=== PATIENT | male | born 1930 | race Caucasian/White ===

== ENCOUNTER 2018-10-16 05:55 | Inpatient (IN) | payer MEDICARE ==
[~2018-10-16] VITALS: Ht 167.6 cm; Wt 79.1 kg
[~2018-10-16 05:55] MED LIST: APIX5TAB PO; BISA-29 PO; CALCIUM CITRATE PO; CAPSAICIN; CHOL1CRY3 PO; CYAN200014 PO; DILT60TA30 PO; DOCUSATE SODIUM PO; DOXA4TAB3 PO; FINA5TAB4 PO; FLUT60LO NAS; FURO40TA6 PO; HYDR-3237 PO; LACT10SO28 PO; LEVO500T47 PO; LOSA25TA6 PO; MAGN420T PO; METO25TA4 PO; METOPROLOL PO; OMEP40CA6 PO; POLY17PO5 PO; POTA20PA25 PO; POTA20TA14 PO; POTA25TA4 PO; ROSU10TA PO; TRAM50TA2 PO; VITA1CAP PO
[2018-10-16] MEDS ORDERED: DILTIAZEM 5 MG/ML, 5ML ONE (06:28)
[2018-10-16] MEDS ORDERED: SODIUM CHLORIDE FLUSH 10ML SYR IVF ONE (06:30)
[2018-10-16] MEDS ORDERED: DILTIAZEM 5 MG/ML, 5ML IV ONE (06:30)
[2018-10-16 06:32] LABS: BASOPHILS # (AUTO) 0.01 x10^3/uL (0-0.1); BASOPHILS % (AUTO) 0 % (0-1); EOSINOPHILS # (AUTO) 0.18 x10^3/uL (0-0.4); EOSINOPHILS % (AUTO) 3 % (1-7); LYMPHOCYTES # (AUTO) 0.57 x10^3/uL (1-3.4); LYMPHOCYTES % (AUTO) 9 % (22-44); MD NO; MEAN CORPUSCULAR HEMOGLOBIN 28.8 pg (27.5-34.5); MEAN CORPUSCULAR HGB CONC 33.2 g/dL (33.2-36.2); MEAN CORPUSCULAR VOLUME 86.8 fL (81-97); MEAN PLATELET VOLUME 7.8 fL (7.4-10.4); MONOCYTES # (AUTO) 0.85 x10^3/uL (0.2-0.8); MONOCYTES % (AUTO) 13 % (2-9); NEUTROPHILS # (AUTO) 4.91 x10^3/uL (1.8-6.8); NEUTROPHILS % (AUTO) 75 % (42-75); PLATELET COUNT 233 x10^3/uL (130-400); RED BLOOD COUNT 3.22 x10^6/uL (4.38-5.82); RED CELL DISTRIBUTION WIDTH 16.8 % (9.4-14.8)
[2018-10-16 06:44] LABS: ALANINE AMINOTRANSFERASE 33 U/L (12-78); ANION GAP 10 mmol/L (5-15); CALCIUM 8.4 mg/dL (8.5-10.1); CHLORIDE 105 mmol/L (98-107)
[2018-10-16 06:49] LABS: ALKALINE PHOSPHATASE 49 U/L (45-117); BILIRUBIN,TOTAL 0.7 mg/dL (0.2-1.0); CREATININE 0.98 mg/dL (0.7-1.3); TROPONIN I 0.026 ng/mL (0.000-0.045)
[2018-10-16] MEDS ORDERED: FUROSEMIDE 40 MG/4 ML IV ONE (07:30)
[2018-10-16] MEDS ORDERED: BUDE10.2 IH (07:36)
[2018-10-16] MEDS ORDERED: ALBU18HF IH (07:36)
[2018-10-16] MEDS ORDERED: FUROSEMIDE 40 MG/4 ML ONE (07:55)
[2018-10-16] MEDS ORDERED: MORPHINE SULFATE 4 MG/ML, 1ML ONE (07:55)
[2018-10-16] MEDS ORDERED: SODIUM CHLORIDE FLUSH 10ML SYR IVF PRN (08:00)
[2018-10-16] MEDS ORDERED: MORPHINE SULFATE 4 MG/ML, 1ML IVPush PRN (08:00)
[2018-10-16] MEDS ORDERED: LOSARTAN 25MG TABLET PO SCH (09:00)
[2018-10-16] MEDS ORDERED: LIDODERM 5% PATCH TD PRN (09:00)
[2018-10-16] MEDS ORDERED: FLUTICASONE NASAL SPRAY 16GM NAS PRN (09:00)
[2018-10-16] MEDS ORDERED: BISACODYL 10 MG SUPP PR PRN (09:00)
[2018-10-16] MEDS ORDERED: LABETALOL 5MG/ML, 20ML IVPush PRN (09:00)
[2018-10-16] MEDS ORDERED: ONDANSETRON 2MG/ML, 2ML IVPush PRN (09:00)
[2018-10-16] MEDS ORDERED: TEMPLATE NON-FORMULARY MED. (Albuterol Sulfate (Ventolin Hfa) 2 PUFFS) IH PRN (09:00)
[2018-10-16] MEDS ORDERED: DILTIAZEM 5 MG/ML, 5ML IVPush PRN (09:00)
[2018-10-16] MEDS ORDERED: ONDANSETRON ODT 4 MG PO PRN (09:00)
[2018-10-16] MEDS: POLYETHYLENE GLYCOL 17 GM PACKET PO SCH (09:00)
[2018-10-16] MEDS: TEMPLATE NON-FORMULARY MED. (Budesonide/Formoterol Fumarate (Symbicort 160-4.5 Mcg Inhaler IH SCH ×2 (09:00→21:49)
[2018-10-16] MEDS ORDERED: hydrALAzine 20 MG/ML, 1ML IVPush PRN (09:00)
[2018-10-16] MEDS ORDERED: DEXTROSE 4 GM TAB.CHEW PO PRN (09:30)
[2018-10-16] MEDS ORDERED: DEXTROSE 50%, 50ML SYRINGE IVPush PRN (09:30)
[2018-10-16] MEDS ORDERED: GLUCAGON 1 MG IM PRN (09:30)
[2018-10-16 09:46] LABS: THYROID STIMULATING HORMONE 1.99 mIU/L (0.358-3.740)
[2018-10-16 10:10] VITALS: BP 131/71
[2018-10-16] MEDS: APIXABAN 5 MG TABLET PO SCH ×2 (10:23→21:33)
[2018-10-16] MEDS: METOPROLOL TARTRATE 25 MG TABLET PO SCH ×2 (10:23→21:33)
[2018-10-16] MEDS: DILTIAZEM 90 MG CAP.ER.12H PO SCH ×2 (10:23→21:32)
[2018-10-16] MEDS: FINASTERIDE 5 MG TABLET PO SCH (10:23)
[2018-10-16] MEDS: POTASSIUM CHLORIDE 20 MEQ TAB.ER.PRT PO SCH (10:23)
[2018-10-16] MEDS: DOCUSATE 100 MG CAPSULE PO SCH ×2 (10:23→21:33)
[2018-10-16] MEDS ORDERED: MAGNESIUM SULFATE PMX 2GM/50ML 50 ML IV ONE (10:30)
[2018-10-16] MEDS ORDERED: ALBUTEROL SULFATE 2.5 MG/3 ML NPPB PRN (10:30)
[2018-10-16 10:32] LABS: MICROSCOPIC AUTO
[2018-10-16 10:36] LABS: CULTURE INDICATED? YES
[2018-10-16] MEDS: INSULIN LISPRO 100 UNITS/ML, PEN SQ-INSULIN SCH ×3 (11:00→21:36)
[2018-10-16] MEDS: ACETAMINOPHEN 325 MG TABLET PO PRN (12:25)
[2018-10-16 14:00] VITALS: BP 131/71
[2018-10-16] MEDS ORDERED: FUROSEMIDE 40 MG/4 ML IV SCH (17:00)
[2018-10-16] MEDS ORDERED: BUDESONIDE 0.5 MG/2 ML INHA INH SCH (21:00)
[2018-10-16] MEDS ORDERED: TEMPLATE NON-FORMULARY MED. (Rosuvastatin Calcium** (Crestor**) 10 MG) PO SCH (21:00)
[2018-10-16 21:30] VITALS: BP 111/54
[2018-10-16] MEDS: SODIUM CHLORIDE FLUSH 10ML SYR IVF SCH (21:31)
[2018-10-16] MEDS: ATORVASTATIN 20 MG TABLET PO SCH (23:28)
[2018-10-17 02:15] VITALS: BP 105/59
[2018-10-17 05:21] LABS: BASOPHILS # (AUTO) 0.02 x10^3/uL (0-0.1); BASOPHILS % (AUTO) 0 % (0-1); EOSINOPHILS # (AUTO) 0.23 x10^3/uL (0-0.4); EOSINOPHILS % (AUTO) 4 % (1-7); LYMPHOCYTES # (AUTO) 0.64 x10^3/uL (1-3.4); LYMPHOCYTES % (AUTO) 12 % (22-44); MD NO; MEAN CORPUSCULAR HEMOGLOBIN 28.7 pg (27.5-34.5); MEAN CORPUSCULAR HGB CONC 33.5 g/dL (33.2-36.2); MEAN CORPUSCULAR VOLUME 85.9 fL (81-97); MEAN PLATELET VOLUME 8.3 fL (7.4-10.4); MONOCYTES # (AUTO) 0.72 x10^3/uL (0.2-0.8); MONOCYTES % (AUTO) 14 % (2-9); NEUTROPHILS % (AUTO) 70 % (42-75); PLATELET COUNT 212 x10^3/uL (130-400); RED BLOOD COUNT 2.95 x10^6/uL (4.38-5.82); RED CELL DISTRIBUTION WIDTH 16.8 % (9.4-14.8)
[2018-10-17 05:29] LABS: ALANINE AMINOTRANSFERASE 28 U/L (12-78); ALBUMIN 2.5 g/dL (3.4-5.0); ANION GAP 7 mmol/L (5-15); CALCIUM 7.8 mg/dL (8.5-10.1); CHLORIDE 106 mmol/L (98-107); CREATININE 0.94 mg/dL (0.7-1.3)
[2018-10-17 05:30] LABS: ALKALINE PHOSPHATASE 43 U/L (45-117); BILIRUBIN,TOTAL 0.5 mg/dL (0.2-1.0); TOTAL PROTEIN 6.1 g/dL (6.4-8.2)
[2018-10-17] MEDS: OMEPRAZOLE 20 MG CAPSULE.DR PO SCH (05:46)
[2018-10-17] MEDS: INSULIN LISPRO 100 UNITS/ML, PEN SQ-INSULIN SCH ×4 (07:00→20:54)
[2018-10-17 07:32] VITALS: BP 96/51
[2018-10-17 08:32] VITALS: BP 124/63
[2018-10-17] MEDS: FINASTERIDE 5 MG TABLET PO SCH (08:36)
[2018-10-17] MEDS: POTASSIUM CHLORIDE 20 MEQ TAB.ER.PRT PO SCH (08:36)
[2018-10-17] MEDS: APIXABAN 5 MG TABLET PO SCH ×2 (08:36→20:51)
[2018-10-17] MEDS: FERROUS SULFATE 325 MG TABLET PO SCH (08:36)
[2018-10-17] MEDS: DILTIAZEM 90 MG CAP.ER.12H PO SCH ×2 (08:36→20:50)
[2018-10-17] MEDS: LOSARTAN 25MG TABLET PO SCH (08:37)
[2018-10-17] MEDS: METOPROLOL TARTRATE 25 MG TABLET PO SCH ×2 (08:37→20:50)
[2018-10-17] MEDS: DOCUSATE 100 MG CAPSULE PO SCH ×2 (08:37→20:51)
[2018-10-17] MEDS: POLYETHYLENE GLYCOL 17 GM PACKET PO SCH (08:37)
[2018-10-17] MEDS: TEMPLATE NON-FORMULARY MED. (Budesonide/Formoterol Fumarate (Symbicort 160-4.5 Mcg Inhaler IH SCH ×2 (08:38→21:01)
[2018-10-17] MEDS: SODIUM CHLORIDE FLUSH 10ML SYR IVF SCH ×2 (08:38→20:51)
[2018-10-17] MEDS ORDERED: FUROSEMIDE 20 MG/2 ML IV ONE (10:30)
[2018-10-17] MEDS: IRON SUCROSE COMPLEX 100MG/5ML IV SCH (13:31)
[2018-10-17 14:45] VITALS: BP 117/62
[2018-10-17] MEDS: FUROSEMIDE 40 MG/4 ML IV SCH (17:09)
[2018-10-17] MEDS: ATORVASTATIN 20 MG TABLET PO SCH (20:50)
[2018-10-17 20:55] VITALS: BP 123/67
[2018-10-18] VITALS (7 sets, daily range): BP systolic 110–127; BP diastolic 61–72
[2018-10-18] MEDS: OMEPRAZOLE 20 MG CAPSULE.DR PO SCH (05:02)
[2018-10-18 05:16] LABS: BASOPHILS # (AUTO) 0.05 x10^3/uL (0-0.1); BASOPHILS % (AUTO) 1 % (0-1); EOSINOPHILS # (AUTO) 0.14 x10^3/uL (0-0.4); EOSINOPHILS % (AUTO) 3 % (1-7); LYMPHOCYTES # (AUTO) 0.66 x10^3/uL (1-3.4); LYMPHOCYTES % (AUTO) 12 % (22-44); MD NO; MEAN CORPUSCULAR HEMOGLOBIN 27.9 pg (27.5-34.5); MEAN CORPUSCULAR HGB CONC 32.4 g/dL (33.2-36.2); MEAN PLATELET VOLUME 8.3 fL (7.4-10.4); MONOCYTES # (AUTO) 0.74 x10^3/uL (0.2-0.8); MONOCYTES % (AUTO) 13 % (2-9); NEUTROPHILS # (AUTO) 3.97 x10^3/uL (1.8-6.8); NEUTROPHILS % (AUTO) 71 % (42-75); PLATELET COUNT 226 x10^3/uL (130-400); RED BLOOD COUNT 3.02 x10^6/uL (4.38-5.82); RED CELL DISTRIBUTION WIDTH 16.8 % (9.4-14.8)
[2018-10-18 05:28] LABS: ALBUMIN 2.6 g/dL (3.4-5.0); ANION GAP 6 mmol/L (5-15); CALCIUM 7.7 mg/dL (8.5-10.1); CHLORIDE 105 mmol/L (98-107)
[2018-10-18 05:29] LABS: CREATININE 1.07 mg/dL (0.7-1.3)
[2018-10-18] MEDS: INSULIN LISPRO 100 UNITS/ML, PEN SQ-INSULIN SCH ×4 (07:00→21:55)
[2018-10-18] MEDS: FUROSEMIDE 40 MG/4 ML IV SCH ×2 (08:13→17:17)
[2018-10-18] MEDS: DILTIAZEM 90 MG CAP.ER.12H PO SCH ×2 (09:31→21:52)
[2018-10-18] MEDS: LOSARTAN 25MG TABLET PO SCH (09:31)
[2018-10-18] MEDS: DOCUSATE 100 MG CAPSULE PO SCH ×2 (09:31→21:52)
[2018-10-18] MEDS: FERROUS SULFATE 325 MG TABLET PO SCH (09:31)
[2018-10-18] MEDS: APIXABAN 5 MG TABLET PO SCH ×2 (09:31→21:52)
[2018-10-18] MEDS: FINASTERIDE 5 MG TABLET PO SCH (09:31)
[2018-10-18] MEDS: POTASSIUM CHLORIDE 20 MEQ TAB.ER.PRT PO SCH (09:32)
[2018-10-18] MEDS: METOPROLOL TARTRATE 25 MG TABLET PO SCH ×2 (09:32→21:52)
[2018-10-18] MEDS: SODIUM CHLORIDE FLUSH 10ML SYR IVF SCH ×2 (09:32→21:51)
[2018-10-18] MEDS: POLYETHYLENE GLYCOL 17 GM PACKET PO SCH (09:32)
[2018-10-18] MEDS: TEMPLATE NON-FORMULARY MED. (Budesonide/Formoterol Fumarate (Symbicort 160-4.5 Mcg Inhaler IH SCH ×2 (09:44→21:51)
[2018-10-18] MEDS: ACETAMINOPHEN 325 MG TABLET PO PRN (12:41)
[2018-10-18] MEDS: IRON SUCROSE COMPLEX 100MG/5ML IV SCH (12:41)
[2018-10-18 13:51] LABS: OCCULT BLOOD NEGATIVE (NEGATIVE)
[2018-10-18] MEDS: ATORVASTATIN 20 MG TABLET PO SCH (21:52)
[2018-10-19] VITALS (7 sets, daily range): BP systolic 109–148; BP diastolic 48–77
[2018-10-19 04:49] LABS: BASOPHILS # (AUTO) 0.02 x10^3/uL (0-0.1); BASOPHILS % (AUTO) 0 % (0-1); EOSINOPHILS # (AUTO) 0.23 x10^3/uL (0-0.4); EOSINOPHILS % (AUTO) 4 % (1-7); LYMPHOCYTES # (AUTO) 0.67 x10^3/uL (1-3.4); LYMPHOCYTES % (AUTO) 11 % (22-44); MD NO; MEAN CORPUSCULAR HEMOGLOBIN 27.9 pg (27.5-34.5); MEAN CORPUSCULAR HGB CONC 32.3 g/dL (33.2-36.2); MEAN CORPUSCULAR VOLUME 86.4 fL (81-97); MEAN PLATELET VOLUME 8.1 fL (7.4-10.4); MONOCYTES # (AUTO) 0.89 x10^3/uL (0.2-0.8); MONOCYTES % (AUTO) 15 % (2-9); NEUTROPHILS # (AUTO) 4.23 x10^3/uL (1.8-6.8); NEUTROPHILS % (AUTO) 70 % (42-75); PLATELET COUNT 213 x10^3/uL (130-400); RED BLOOD COUNT 2.97 x10^6/uL (4.38-5.82); RED CELL DISTRIBUTION WIDTH 16.8 % (9.4-14.8)
[2018-10-19 05:01] LABS: ALBUMIN 2.5 g/dL (3.4-5.0); ANION GAP 7 mmol/L (5-15); CALCIUM 7.5 mg/dL (8.5-10.1); CHLORIDE 105 mmol/L (98-107)
[2018-10-19 05:02] LABS: CREATININE 0.89 mg/dL (0.7-1.3)
[2018-10-19] MEDS: OMEPRAZOLE 20 MG CAPSULE.DR PO SCH (05:39)
[2018-10-19] MEDS: INSULIN LISPRO 100 UNITS/ML, PEN SQ-INSULIN SCH ×4 (07:53→21:11)
[2018-10-19] MEDS: IRON SUCROSE COMPLEX 100MG/5ML IV SCH (09:22)
[2018-10-19] MEDS: DOCUSATE 100 MG CAPSULE PO SCH ×2 (09:23→21:10)
[2018-10-19] MEDS: FINASTERIDE 5 MG TABLET PO SCH (09:23)
[2018-10-19] MEDS: FUROSEMIDE 40 MG/4 ML IV SCH (09:23)
[2018-10-19] MEDS: POTASSIUM CHLORIDE 20 MEQ TAB.ER.PRT PO SCH (09:23)
[2018-10-19] MEDS: METOPROLOL TARTRATE 25 MG TABLET PO SCH ×2 (09:23→21:11)
[2018-10-19] MEDS: POLYETHYLENE GLYCOL 17 GM PACKET PO SCH (09:23)
[2018-10-19] MEDS: DILTIAZEM 90 MG CAP.ER.12H PO SCH ×2 (09:24→21:10)
[2018-10-19] MEDS: APIXABAN 5 MG TABLET PO SCH ×2 (09:24→21:10)
[2018-10-19] MEDS: LOSARTAN 25MG TABLET PO SCH (09:24)
[2018-10-19] MEDS: FERROUS SULFATE 325 MG TABLET PO SCH (09:25)
[2018-10-19] MEDS: SODIUM CHLORIDE FLUSH 10ML SYR IVF SCH (09:25)
[2018-10-19] MEDS: TEMPLATE NON-FORMULARY MED. (Budesonide/Formoterol Fumarate (Symbicort 160-4.5 Mcg Inhaler IH SCH ×2 (09:25→21:09)
[2018-10-19] MEDS ORDERED: FUROSEMIDE 20 MG/2 ML IV SCH (17:00)
[2018-10-19] MEDS: ATORVASTATIN 20 MG TABLET PO SCH (21:10)
[2018-10-20 01:10] VITALS: BP 105/47
[2018-10-20] MEDS: OMEPRAZOLE 20 MG CAPSULE.DR PO SCH (06:44)
[2018-10-20] MEDS: SODIUM CHLORIDE FLUSH 10ML SYR IVF SCH ×2 (06:44→08:55)
[2018-10-20] MEDS: INSULIN LISPRO 100 UNITS/ML, PEN SQ-INSULIN SCH ×3 (07:00→16:56)
[2018-10-20 07:37] VITALS: BP 126/56
[2018-10-20] MEDS: LOSARTAN 25MG TABLET PO SCH (08:54)
[2018-10-20] MEDS: DILTIAZEM 90 MG CAP.ER.12H PO SCH (08:54)
[2018-10-20] MEDS: METOPROLOL TARTRATE 25 MG TABLET PO SCH (08:54)
[2018-10-20] MEDS: IRON SUCROSE COMPLEX 100MG/5ML IV SCH (08:54)
[2018-10-20] MEDS: FINASTERIDE 5 MG TABLET PO SCH (08:54)
[2018-10-20] MEDS: APIXABAN 5 MG TABLET PO SCH (08:55)
[2018-10-20] MEDS: TEMPLATE NON-FORMULARY MED. (Budesonide/Formoterol Fumarate (Symbicort 160-4.5 Mcg Inhaler IH SCH (08:55)
[2018-10-20] MEDS: POTASSIUM CHLORIDE 20 MEQ TAB.ER.PRT PO SCH (08:55)
[2018-10-20] MEDS: POLYETHYLENE GLYCOL 17 GM PACKET PO SCH (08:55)
[2018-10-20] MEDS ORDERED: FUROSEMIDE 20 MG TABLET PO SCH (09:00)
[2018-10-20] MEDS ORDERED: ALBUTEROL SULFATE 2.5 MG/3 ML NPPB SCH (09:00)
[2018-10-20] MEDS: DOCUSATE 100 MG CAPSULE PO SCH (09:00)
[2018-10-20] MEDS ORDERED: BUDESONIDE 0.5 MG/2 ML INHA INH SCH (09:00)
[2018-10-20 12:12] VITALS: BP 112/54
[2018-10-20] MEDS ORDERED: BUDE0.5A INH (12:43)
[2018-10-20] MEDS ORDERED: ATOR20TA9 PO (12:43)
[2018-10-20] MEDS ORDERED: OMEP-110 PO (12:43)
[2018-10-20] MEDS ORDERED: FERR325T18 PO (12:46)
== END 2018-10-20 19:00 | DRG 291 ==
LOC: ED 08:29 → EDIP 08:30 → 5SO 09:19
PROVIDERS: ADMIT Hospitalist; ATTEND Hospitalist
DX: I13.0 Hypertensive heart and chronic kidney disease with heart failure and stage 1 through stage 4 chronic kidney disease, or unspecified chronic kidney disease (principal); I50.31 Acute diastolic (congestive) heart failure; E44.0 Moderate protein-calorie malnutrition; E11.22 Type 2 diabetes mellitus with diabetic chronic kidney disease; D63.8 Anemia in other chronic diseases classified elsewhere; E11.649 Type 2 diabetes mellitus with hypoglycemia without coma; Z96.641 Presence of right artificial hip joint; N40.0 Benign prostatic hyperplasia without lower urinary tract symptoms; K27.9 Peptic ulcer, site unspecified, unspecified as acute or chronic, without hemorrhage or perforation; I70.1 Atherosclerosis of renal artery; E78.5 Hyperlipidemia, unspecified; N18.2 Chronic kidney disease, stage 2 (mild); I48.0 Paroxysmal atrial fibrillation; J92.0 Pleural plaque with presence of asbestos; K59.09 Other constipation; K21.9 Gastro-esophageal reflux disease without esophagitis; I49.3 Ventricular premature depolarization; K57.90 Diverticulosis of intestine, part unspecified, without perforation or abscess without bleeding; B95.2 Enterococcus as the cause of diseases classified elsewhere; Z87.891 Personal history of nicotine dependence; Z79.84 Long term (current) use of oral hypoglycemic drugs; Z79.01 Long term (current) use of anticoagulants; Z86.010 Personal history of colon polyps; Z95.0 Presence of cardiac pacemaker
CPT/HCPCS: 36415; 71045; 80048; 80053; 81001; 82040; 82272; 82728; 82962; 83540; 83550; 83735; 83880; 84100; 84443; 84466; 84484; 85025; 87086; 90656; 93005; 94640; 96374; 96375; 99291; G0378; J1756; J1940; J2405; J7613; J7626; J3475